=== PATIENT | female | born 1960 | race Caucasian/White ===

== ENCOUNTER 2018-01-21 18:22 | Inpatient (IN) | payer MEDICAID ==
[~2018-01-21] VITALS: Ht 114.3 cm; Wt 134.5 kg
[2018-01-21 19:19] LABS: BASOPHILS # (AUTO) 0.05 x10^3/uL (0-0.1); BASOPHILS % (AUTO) 1 % (0-1); EOSINOPHILS # (AUTO) 0.19 x10^3/uL (0-0.4); EOSINOPHILS % (AUTO) 2 % (1-7); LYMPHOCYTES % (AUTO) 20 % (22-44); MD NO; MEAN CORPUSCULAR HEMOGLOBIN 30.3 pg (27.0-34.8); MEAN CORPUSCULAR HGB CONC 33.5 g/dL (32.4-35.8); MEAN CORPUSCULAR VOLUME 90.4 fL (80-100); MEAN PLATELET VOLUME 10.1 fL (7.4-10.4); MONOCYTES # (AUTO) 0.39 x10^3/uL (0.2-0.8); MONOCYTES % (AUTO) 5 % (2-9); NEUTROPHILS # (AUTO) 5.95 x10^3/uL (1.8-6.8); NEUTROPHILS % (AUTO) 73 % (42-75); PLATELET COUNT 166 x10^3/uL (130-400); RED BLOOD COUNT 2.85 x10^6/uL (3.82-5.3); RED CELL DISTRIBUTION WIDTH 17.3 % (9.6-15.2)
[2018-01-21 19:28] LABS: ALBUMIN 2.8 g/dL (3.4-5.0); ANION GAP 12 mmol/L (5-15); CALCIUM 7.9 mg/dL (8.5-10.1); CHLORIDE 103 mmol/L (98-107)
[2018-01-21 19:31] LABS: INTERNATIONAL NORMALIZED RATIO 0.99 (0.93-1.1); PROTHROMBIN TIME 10.2 Seconds (9.6-11.5)
[2018-01-21 19:33] LABS: ALANINE AMINOTRANSFERASE 18 U/L (12-78); ALKALINE PHOSPHATASE 60 U/L (45-117); BILIRUBIN,TOTAL 0.5 mg/dL (0.2-1.0); CREATININE 1.75 mg/dL (0.55-1.02); TOTAL PROTEIN 6.5 g/dL (6.4-8.2)
[2018-01-21] MEDS ORDERED: SODIUM CHLORIDE FLUSH 10ML SYR IVF ONE ×2 (20:00)
[2018-01-21] MEDS ORDERED: SODIUM CHLORIDE 0.9% 1,000ML IVBOLUS ONE (20:00)
[2018-01-21] MEDS ORDERED: MEDROXYPROGESTERONE ACETATE 150 MG/ML IM ONE (20:30)
[2018-01-21 20:44] VITALS: BP 75/54
[2018-01-21 21:06] VITALS: BP 85/51
[2018-01-21] MEDS ORDERED: SODIUM CHLORIDE 0.9% 1,000 ML IV SCH (21:23)
[2018-01-21] MEDS ORDERED: LABETALOL 5MG/ML, 20ML IVPush PRN (21:30)
[2018-01-21] MEDS ORDERED: hydrALAzine 20 MG/ML, 1ML IVPush PRN (21:30)
[2018-01-21] MEDS ORDERED: ONDANSETRON 2MG/ML, 2ML IVPush PRN (21:30)
[2018-01-21] MEDS ORDERED: PROMETHAZINE 25 MG/ML, 1ML IM PRN (21:30)
[2018-01-21] MEDS ORDERED: BISACODYL 10 MG SUPP PR PRN (21:30)
[2018-01-21] MEDS ORDERED: POLYETHYLENE GLYCOL 17 GM PACKET PO PRN (21:30)
[2018-01-21] MEDS ORDERED: METF-649 PO (21:32)
[2018-01-21] MEDS ORDERED: LORA0.5T PO (21:32)
[2018-01-21] MEDS ORDERED: VENL150T PO (21:32)
[2018-01-21] MEDS ORDERED: MEDR10TA3 PO (21:32)
[2018-01-21] MEDS ORDERED: LORA5SOL PO (21:32)
[2018-01-21] MEDS ORDERED: POTASSIUM CHLORIDE (21:32)
[2018-01-21] MEDS ORDERED: LISI-167 PO (21:32)
[2018-01-21] MEDS ORDERED: GLIM4TAB2 PO (21:32)
[2018-01-21] MEDS ORDERED: ATOR40TA78 PO (21:32)
[2018-01-21] MEDS ORDERED: EMPA25TA PO (21:32)
[2018-01-21] MEDS ORDERED: FURO40TA6 PO (21:32)
[2018-01-21] MEDS ORDERED: CARV6.25 PO (21:32)
[2018-01-21 22:10] LABS: FREE T4 (FREE THYROXINE) 0.87 ng/dL (0.76-1.46); THYROID STIMULATING HORMONE 2.93 mIU/L (0.358-3.740)
[2018-01-21 22:14] VITALS: BP 100/68
[2018-01-21] MEDS ORDERED: LORazepam 0.5MG TABLET ONE (23:18)
[2018-01-21] MEDS: LORazepam 0.5MG TABLET PO SCH (23:20)
[2018-01-22] VITALS (10 sets, daily range): BP systolic 90–129; BP diastolic 54–70
[2018-01-22] MEDS: INSULIN LISPRO 100 UNITS/ML, PEN SQ-INSULIN SCH ×4 (00:27→21:44)
[2018-01-22] MEDS: ACETAMINOPHEN 325 MG TABLET PO PRN (02:26)
[2018-01-22 03:16] LABS: HEMOGLOBIN A1C 5.9 % (4.2-6.3)
[2018-01-22 04:02] LABS: BASOPHILS # (AUTO) 0.05 x10^3/uL (0-0.1); BASOPHILS % (AUTO) 1 % (0-1); EOSINOPHILS # (AUTO) 0.17 x10^3/uL (0-0.4); EOSINOPHILS % (AUTO) 3 % (1-7); LYMPHOCYTES % (AUTO) 22 % (22-44); MD NO; MEAN CORPUSCULAR HEMOGLOBIN 31.3 pg (27.0-34.8); MEAN CORPUSCULAR HGB CONC 34.5 g/dL (32.4-35.8); MEAN CORPUSCULAR VOLUME 90.9 fL (80-100); MEAN PLATELET VOLUME 9.8 fL (7.4-10.4); MONOCYTES # (AUTO) 0.47 x10^3/uL (0.2-0.8); MONOCYTES % (AUTO) 7 % (2-9); NEUTROPHILS # (AUTO) 4.67 x10^3/uL (1.8-6.8); NEUTROPHILS % (AUTO) 68 % (42-75); PLATELET COUNT 142 x10^3/uL (130-400); RED BLOOD COUNT 2.91 x10^6/uL (3.82-5.3)
[2018-01-22 04:14] LABS: ALANINE AMINOTRANSFERASE 16 U/L (12-78); ALBUMIN 2.4 g/dL (3.4-5.0); ANION GAP 11 mmol/L (5-15); CALCIUM 7.9 mg/dL (8.5-10.1); CHLORIDE 107 mmol/L (98-107); CREATININE 1.23 mg/dL (0.55-1.02)
[2018-01-22 04:17] LABS: ALKALINE PHOSPHATASE 51 U/L (45-117); BILIRUBIN,TOTAL 0.6 mg/dL (0.2-1.0); CHOL/HDL RATIO 3.2; CHOLESTEROL, TOTAL 106 mg/dL (140-239); HDL CHOL % 31 % (28-40); HDL CHOLESTEROL (DIRECT) 33 mg/dL (40-60); LDL CHOLESTEROL,CALCULATED 16 mg/dL (54-169); LDL/HDL RATIO 0.5 (0.5-3.0); TOTAL PROTEIN 5.8 g/dL (6.4-8.2); TRIGLYCERIDES 285 mg/dL (50-200); VLDL CHOLESTEROL 57 mg/dL (0-25)
[2018-01-22] MEDS: ASPIRIN 81 MG TABLET EC PO SCH (06:18)
[2018-01-22] MEDS ORDERED: MAGNESIUM SULFATE PMX 2GM/50ML 50 ML IV ONE (08:30)
[2018-01-22] MEDS ORDERED: CARVEDILOL 3.125 MG PO SCH (09:00)
[2018-01-22] MEDS: FUROSEMIDE 40 MG TABLET PO SCH (09:18)
[2018-01-22] MEDS ORDERED: MEDROXYPROGESTERONE ACETATE 2.5 MG TABLET ONE (09:26)
[2018-01-22] MEDS: MEDROXYPROGESTERONE ACETATE 5 MG TABLET PO SCH (09:34)
[2018-01-22] MEDS: LORATADINE 10 MG TABLET PO SCH (09:35)
[2018-01-22] MEDS: VENLAFAXINE 75 MG CAP ER PO SCH (09:35)
[2018-01-22] MEDS: CLOPIDOGREL 75 MG TABLET PO SCH ×2 (09:35→16:45)
[2018-01-22] MEDS: GLIMEPIRIDE 4 MG TABLET PO SCH (10:01)
[2018-01-22] MEDS: LORazepam 0.5MG TABLET PO SCH ×2 (17:22→21:43)
[2018-01-22] MEDS: DOCUSATE 100 MG CAPSULE PO PRN (17:22)
[2018-01-22 21:36] LABS: MICROSCOPIC INDICATED
[2018-01-22] MEDS: ATORVASTATIN 40 MG TABLET PO SCH (21:43)
[2018-01-22 21:58] LABS: CULTURE INDICATED? NO
[2018-01-23 01:55] VITALS: BP 109/73
[2018-01-23 02:36] LABS: BASOPHILS # (AUTO) 0.07 x10^3/uL (0-0.1); BASOPHILS % (AUTO) 1 % (0-1); EOSINOPHILS # (AUTO) 0.21 x10^3/uL (0-0.4); EOSINOPHILS % (AUTO) 3 % (1-7); LYMPHOCYTES # (AUTO) 1.76 x10^3/uL (1-3.4); LYMPHOCYTES % (AUTO) 23 % (22-44); MD NO; MEAN CORPUSCULAR HEMOGLOBIN 31.5 pg (27.0-34.8); MEAN CORPUSCULAR HGB CONC 34.1 g/dL (32.4-35.8); MEAN CORPUSCULAR VOLUME 92.4 fL (80-100); MEAN PLATELET VOLUME 9.8 fL (7.4-10.4); MONOCYTES # (AUTO) 0.49 x10^3/uL (0.2-0.8); MONOCYTES % (AUTO) 6 % (2-9); NEUTROPHILS # (AUTO) 5.22 x10^3/uL (1.8-6.8); NEUTROPHILS % (AUTO) 67 % (42-75); PLATELET COUNT 159 x10^3/uL (130-400); RED CELL DISTRIBUTION WIDTH 18.5 % (9.6-15.2)
[2018-01-23 02:45] LABS: ANION GAP 9 mmol/L (5-15); CALCIUM 8.5 mg/dL (8.5-10.1); CHLORIDE 104 mmol/L (98-107); CREATININE 1.12 mg/dL (0.55-1.02)
[2018-01-23 02:46] LABS: ALANINE AMINOTRANSFERASE 18 U/L (12-78); ALBUMIN 2.6 g/dL (3.4-5.0)
[2018-01-23 02:48] LABS: ALKALINE PHOSPHATASE 57 U/L (45-117); BILIRUBIN,TOTAL 0.4 mg/dL (0.2-1.0); TOTAL PROTEIN 6.3 g/dL (6.4-8.2)
[2018-01-23] MEDS: ASPIRIN 81 MG TABLET EC PO SCH (05:46)
[2018-01-23 08:01] VITALS: BP 143/78
[2018-01-23] MEDS: INSULIN LISPRO 100 UNITS/ML, PEN SQ-INSULIN SCH ×4 (09:24→21:29)
[2018-01-23 09:25] VITALS: BP 100/63
[2018-01-23] MEDS: FUROSEMIDE 40 MG TABLET PO SCH (09:27)
[2018-01-23] MEDS: GLIMEPIRIDE 4 MG TABLET PO SCH (09:28)
[2018-01-23] MEDS: VENLAFAXINE 75 MG CAP ER PO SCH (09:28)
[2018-01-23] MEDS: LORazepam 0.5MG TABLET PO SCH ×3 (09:29→21:29)
[2018-01-23] MEDS: MEDROXYPROGESTERONE ACETATE 5 MG TABLET PO SCH (09:29)
[2018-01-23] MEDS: CARVEDILOL 3.125 MG TABLET PO SCH (09:29)
[2018-01-23] MEDS: LORATADINE 10 MG TABLET PO SCH (09:30)
[2018-01-23] MEDS: TIROFIBAN-0.9% SODIUM CHLORIDE 100 ML IV SCH ×4 (10:18→22:38)
[2018-01-23 12:54] VITALS: BP 104/73
[2018-01-23 19:44] VITALS: BP 100/73
[2018-01-23] MEDS: ATORVASTATIN 40 MG TABLET PO SCH (21:29)
[2018-01-24] VITALS (8 sets, daily range): BP systolic 80–115; BP diastolic 45–77
[2018-01-24] MEDS: ONDANSETRON ODT 4 MG PO PRN ×4 (00:33→20:47)
[2018-01-24] MEDS: TIROFIBAN-0.9% SODIUM CHLORIDE 100 ML IV SCH ×5 (02:46→20:40)
[2018-01-24 04:56] LABS: ALBUMIN 2.4 g/dL (3.4-5.0); ANION GAP 8 mmol/L (5-15); CALCIUM 8.3 mg/dL (8.5-10.1); CHLORIDE 105 mmol/L (98-107)
[2018-01-24 04:57] LABS: MEAN CORPUSCULAR HEMOGLOBIN 31.4 pg (27.0-34.8); MEAN CORPUSCULAR HGB CONC 33.8 g/dL (32.4-35.8); MEAN CORPUSCULAR VOLUME 93.1 fL (80-100); MEAN PLATELET VOLUME 10.2 fL (7.4-10.4); PLATELET COUNT 152 x10^3/uL (130-400); RED BLOOD COUNT 2.24 x10^6/uL (3.82-5.3); RED CELL DISTRIBUTION WIDTH 19.3 % (9.6-15.2)
[2018-01-24 05:02] LABS: ALANINE AMINOTRANSFERASE 14 U/L (12-78); ALKALINE PHOSPHATASE 55 U/L (45-117); BILIRUBIN,TOTAL 0.4 mg/dL (0.2-1.0); CREATININE 1.23 mg/dL (0.55-1.02); TOTAL PROTEIN 5.7 g/dL (6.4-8.2)
[2018-01-24] MEDS: ASPIRIN 81 MG TABLET EC PO SCH (06:00)
[2018-01-24 07:02] LABS: BASOPHILS # (AUTO) 0.06 x10^3/uL (0-0.1); BASOPHILS % (AUTO) 1 % (0-1); EOSINOPHILS # (AUTO) 0.24 x10^3/uL (0-0.4); EOSINOPHILS % (AUTO) 3 % (1-7); LYMPHOCYTES # (AUTO) 2.17 x10^3/uL (1-3.4); LYMPHOCYTES % (AUTO) 25 % (22-44); MD MORPH REVIEW ONLY; MONOCYTES # (AUTO) 0.57 x10^3/uL (0.2-0.8); MONOCYTES % (AUTO) 6 % (2-9); NEUTROPHILS # (AUTO) 5.82 x10^3/uL (1.8-6.8); NEUTROPHILS % (AUTO) 66 % (42-75)
[2018-01-24 07:04] LABS: ANISOCYTOSIS 2+; MICROCYTOSIS 1+; POLYCHROMASIA 1+; TOXIC GRAN 1+
[2018-01-24 07:06] LABS: <PLATELET ESTIMATE> ADEQUATE; <PLT MORPHOLOGY> NORMAL PLT MORPH; SPHEROCYTES 1+
[2018-01-24] MEDS: INSULIN LISPRO 100 UNITS/ML, PEN SQ-INSULIN SCH ×4 (07:53→20:30)
[2018-01-24] MEDS: CARVEDILOL 3.125 MG TABLET PO SCH (07:53)
[2018-01-24] MEDS: FUROSEMIDE 40 MG TABLET PO SCH (07:54)
[2018-01-24] MEDS: GLIMEPIRIDE 4 MG TABLET PO SCH (08:24)
[2018-01-24] MEDS: VENLAFAXINE 75 MG CAP ER PO SCH (08:24)
[2018-01-24] MEDS: MEDROXYPROGESTERONE ACETATE 5 MG TABLET PO SCH (08:24)
[2018-01-24] MEDS: LORazepam 0.5MG TABLET PO SCH ×3 (08:24→20:27)
[2018-01-24] MEDS: LORATADINE 10 MG TABLET PO SCH (08:30)
[2018-01-24] MEDS: ATORVASTATIN 40 MG TABLET PO SCH (20:27)
[2018-01-24] MEDS: INSULIN GLARGINE 100 UNITS/ML, PEN SQ-INSULIN SCH (20:40)
[2018-01-25] VITALS (12 sets, daily range): BP systolic 77–141; BP diastolic 47–88
[2018-01-25] MEDS: TIROFIBAN-0.9% SODIUM CHLORIDE 100 ML IV SCH ×4 (01:15→20:10)
[2018-01-25] MEDS ORDERED: METOPROLOL TARTRATE 25 MG TABLET PO ONE (04:00)
[2018-01-25 05:20] LABS: ANION GAP 12 mmol/L (5-15); CHLORIDE 101 mmol/L (98-107); CREATININE 1.54 mg/dL (0.55-1.02)
[2018-01-25] MEDS ORDERED: DIGOXIN 0.25 MG/ML, 2ML IVPush ONE (06:00)
[2018-01-25] MEDS: ASPIRIN 81 MG TABLET EC PO SCH (06:00)
[2018-01-25] MEDS: INSULIN LISPRO 100 UNITS/ML, PEN SQ-INSULIN SCH ×4 (08:10→20:19)
[2018-01-25] MEDS: CARVEDILOL 3.125 MG TABLET PO SCH (08:12)
[2018-01-25] MEDS: FUROSEMIDE 40 MG TABLET PO SCH (08:12)
[2018-01-25] MEDS: LORazepam 0.5MG TABLET PO SCH ×3 (09:00→20:10)
[2018-01-25] MEDS: ONDANSETRON ODT 4 MG PO PRN (10:33)
[2018-01-25] MEDS: VENLAFAXINE 75 MG CAP ER PO SCH (10:34)
[2018-01-25] MEDS: LORATADINE 10 MG TABLET PO SCH (10:34)
[2018-01-25] MEDS: MEDROXYPROGESTERONE ACETATE 5 MG TABLET PO SCH (10:34)
[2018-01-25] MEDS: GLIMEPIRIDE 4 MG TABLET PO SCH (10:35)
[2018-01-25] MEDS ORDERED: SODIUM CHLORIDE 0.9% 1,000ML IVBOLUS ONE (12:00)
[2018-01-25] MEDS: ATORVASTATIN 40 MG TABLET PO SCH (20:10)
[2018-01-25] MEDS: INSULIN GLARGINE 100 UNITS/ML, PEN SQ-INSULIN SCH (20:18)
[2018-01-26 02:26] VITALS: BP 125/72
[2018-01-26] MEDS: ACETAMINOPHEN 325 MG TABLET PO PRN ×3 (03:16→14:18)
[2018-01-26] MEDS: TIROFIBAN-0.9% SODIUM CHLORIDE 100 ML IV SCH ×3 (04:21→22:58)
[2018-01-26 05:22] LABS: MEAN CORPUSCULAR HEMOGLOBIN 31.4 pg (27.0-34.8); MEAN CORPUSCULAR HGB CONC 34.1 g/dL (32.4-35.8); MEAN CORPUSCULAR VOLUME 92.1 fL (80-100); MEAN PLATELET VOLUME 10.2 fL (7.4-10.4); PLATELET COUNT 161 x10^3/uL (130-400); RED BLOOD COUNT 2.72 x10^6/uL (3.82-5.3); RED CELL DISTRIBUTION WIDTH 17.9 % (9.6-15.2)
[2018-01-26 05:27] LABS: ALANINE AMINOTRANSFERASE 44 U/L (12-78); ALBUMIN 2.4 g/dL (3.4-5.0); ANION GAP 10 mmol/L (5-15); CHLORIDE 103 mmol/L (98-107); CREATININE 1.21 mg/dL (0.55-1.02)
[2018-01-26 05:29] LABS: ALKALINE PHOSPHATASE 63 U/L (45-117); BILIRUBIN,TOTAL 0.5 mg/dL (0.2-1.0); TOTAL PROTEIN 5.9 g/dL (6.4-8.2)
[2018-01-26 05:44] LABS: BASOPHILS # (AUTO) 0.05 x10^3/uL (0-0.1); BASOPHILS % (AUTO) 1 % (0-1); EOSINOPHILS # (AUTO) 0.21 x10^3/uL (0-0.4); EOSINOPHILS % (AUTO) 2 % (1-7); LYMPHOCYTES # (AUTO) 1.43 x10^3/uL (1-3.4); LYMPHOCYTES % (AUTO) 14 % (22-44); MD SCAN; MONOCYTES # (AUTO) 0.57 x10^3/uL (0.2-0.8); MONOCYTES % (AUTO) 6 % (2-9); NEUTROPHILS # (AUTO) 7.88 x10^3/uL (1.8-6.8); NEUTROPHILS % (AUTO) 78 % (42-75)
[2018-01-26] MEDS: ASPIRIN 81 MG TABLET EC PO SCH (05:54)
[2018-01-26 07:44] VITALS: BP 123/68
[2018-01-26] MEDS: LORazepam 0.5MG TABLET PO SCH ×3 (09:00→20:52)
[2018-01-26] MEDS: INSULIN LISPRO 100 UNITS/ML, PEN SQ-INSULIN SCH ×4 (09:04→20:57)
[2018-01-26] MEDS: FUROSEMIDE 40 MG TABLET PO SCH (09:05)
[2018-01-26] MEDS: CARVEDILOL 3.125 MG TABLET PO SCH (09:05)
[2018-01-26] MEDS: VENLAFAXINE 75 MG CAP ER PO SCH (09:05)
[2018-01-26] MEDS: MEDROXYPROGESTERONE ACETATE 5 MG TABLET PO SCH (09:05)
[2018-01-26] MEDS: GLIMEPIRIDE 4 MG TABLET PO SCH (09:06)
[2018-01-26] MEDS: LORATADINE 10 MG TABLET PO SCH (09:06)
[2018-01-26] MEDS: ONDANSETRON ODT 4 MG PO PRN (12:06)
[2018-01-26 13:08] VITALS: BP 105/59
[2018-01-26 19:09] VITALS: BP 123/71
[2018-01-26] MEDS: ATORVASTATIN 40 MG TABLET PO SCH (20:52)
[2018-01-26] MEDS: INSULIN GLARGINE 100 UNITS/ML, PEN SQ-INSULIN SCH (20:58)
[2018-01-27 03:33] VITALS: BP 101/67
[2018-01-27] MEDS: ACETAMINOPHEN 325 MG TABLET PO PRN ×2 (04:04→15:10)
[2018-01-27] MEDS: ASPIRIN 81 MG TABLET EC PO SCH (05:41)
[2018-01-27 05:57] LABS: BASOPHILS # (AUTO) 0.06 x10^3/uL (0-0.1); BASOPHILS % (AUTO) 1 % (0-1); EOSINOPHILS % (AUTO) 2 % (1-7); LYMPHOCYTES # (AUTO) 1.73 x10^3/uL (1-3.4); LYMPHOCYTES % (AUTO) 20 % (22-44); MD NO; MEAN CORPUSCULAR HEMOGLOBIN 31.1 pg (27.0-34.8); MEAN CORPUSCULAR HGB CONC 33.3 g/dL (32.4-35.8); MEAN CORPUSCULAR VOLUME 93.5 fL (80-100); MEAN PLATELET VOLUME 10.4 fL (7.4-10.4); MONOCYTES % (AUTO) 7 % (2-9); NEUTROPHILS # (AUTO) 5.94 x10^3/uL (1.8-6.8); NEUTROPHILS % (AUTO) 70 % (42-75); PLATELET COUNT 179 x10^3/uL (130-400); RED BLOOD COUNT 2.79 x10^6/uL (3.82-5.3)
[2018-01-27 06:15] LABS: ALANINE AMINOTRANSFERASE 51 U/L (12-78); ALBUMIN 2.5 g/dL (3.4-5.0); ALKALINE PHOSPHATASE 110 U/L (45-117); BILIRUBIN,TOTAL 0.4 mg/dL (0.2-1.0); CALCIUM 8.1 mg/dL (8.5-10.1); CREATININE 1.27 mg/dL (0.55-1.02); TOTAL PROTEIN 6.4 g/dL (6.4-8.2)
[2018-01-27 06:18] LABS: ANION GAP 9 mmol/L (5-15); CHLORIDE 102 mmol/L (98-107)
[2018-01-27] MEDS: INSULIN LISPRO 100 UNITS/ML, PEN SQ-INSULIN SCH ×4 (07:00→20:34)
[2018-01-27 08:01] VITALS: BP 126/84
[2018-01-27] MEDS: TIROFIBAN-0.9% SODIUM CHLORIDE 100 ML IV SCH (08:09)
[2018-01-27] MEDS: INSULIN GLARGINE 100 UNITS/ML, PEN SQ-INSULIN SCH ×2 (08:11→20:33)
[2018-01-27] MEDS: MEDROXYPROGESTERONE ACETATE 5 MG TABLET PO SCH (08:12)
[2018-01-27] MEDS: LORazepam 0.5MG TABLET PO SCH ×3 (08:12→20:35)
[2018-01-27] MEDS: GLIMEPIRIDE 4 MG TABLET PO SCH (08:12)
[2018-01-27] MEDS: FUROSEMIDE 40 MG TABLET PO SCH (08:12)
[2018-01-27] MEDS: CARVEDILOL 3.125 MG TABLET PO SCH (08:12)
[2018-01-27] MEDS: VENLAFAXINE 75 MG CAP ER PO SCH (08:12)
[2018-01-27] MEDS: LORATADINE 10 MG TABLET PO SCH (08:13)
[2018-01-27] MEDS ORDERED: AMIODARONE 900 MG in DEXTROSE 5% 482 ML IV PRN (13:00)
[2018-01-27] MEDS ORDERED: AMIODARONE 50 MG/ML, 3ML IVPush ONE (13:00)
[2018-01-27 13:06] VITALS: BP 109/75
[2018-01-27] MEDS ORDERED: FILTER 0.22 MICRON FOR AMIODARONE IV PRN (13:30)
[2018-01-27] MEDS ORDERED: AMIODARONE 150 MG in DEXTROSE 5% 100 ML IV ONE (13:30)
[2018-01-27] MEDS ORDERED: BUPIVACAINE/PF-EPI 0.5% 1:200K ONE ×2 (15:22→15:50)
[2018-01-27] MEDS ORDERED: SILVER NITRATE STICK TP ONE (15:22)
[2018-01-27] MEDS ORDERED: FENTANYL PF 100 MCG/2ML ONE (15:57)
[2018-01-27] MEDS ORDERED: DEXAMETHASONE 4 MG/ML, 1ML ONE ×2 (15:58→16:13)
[2018-01-27] MEDS ORDERED: ONDANSETRON 2MG/ML, 2ML ONE (16:13)
[2018-01-27] MEDS ORDERED: PROPOFOL 10 MG/ML, 20ML ONE (16:13)
[2018-01-27] MEDS ORDERED: SUGAMMADEX 200 MG/2 ML IVPush ONE (16:19)
[2018-01-27] MEDS ORDERED: OXYcodone 5 MG/5 ML ORAL.SOL UDC PO PRN (17:00)
[2018-01-27] MEDS ORDERED: MIDAZOLAM 1 MG/ML, 2ML IV PRN (17:00)
[2018-01-27] MEDS ORDERED: FENTANYL PF 100 MCG/2ML IV PRN (17:00)
[2018-01-27] MEDS ORDERED: MEPERIDINE/PF 25MG/0.5ML IVPush PRN (17:00)
[2018-01-27] MEDS ORDERED: ALBUTEROL SULFATE 2.5 MG/3 ML NPPB PRN (17:00)
[2018-01-27] MEDS ORDERED: HYDROmorphone 1 MG/ML, 1ML IV PRN (17:00)
[2018-01-27] MEDS ORDERED: PROMETHAZINE 25 MG/ML, 1ML IV PRN (17:00)
[2018-01-27] MEDS ORDERED: EPHEDRINE 50 MG/ML, 1ML IVPush PRN (17:00)
[2018-01-27] MEDS ORDERED: ONDANSETRON ODT 8 MG PO PRN (17:00)
[2018-01-27] MEDS ORDERED: ONDANSETRON 2MG/ML, 2ML IV PRN (17:00)
[2018-01-27] MEDS ORDERED: MORPHINE SULFATE 4 MG/ML, 1ML IVPush PRN (17:00)
[2018-01-27] MEDS ORDERED: LABETALOL 5MG/ML, 20ML IV PRN (17:00)
[2018-01-27] MEDS ORDERED: hydrALAzine 20 MG/ML, 1ML IV PRN (17:00)
[2018-01-27] MEDS ORDERED: PROMETHAZINE 12.5 MG SUPP PR PRN (17:00)
[2018-01-27] MEDS ORDERED: HALOPERIDOL 5 MG/ML IV PRN (17:00)
[2018-01-27] MEDS ORDERED: LORazepam 2 MG/ML, 1ML IVPush PRN (17:00)
[2018-01-27] MEDS ORDERED: INSULIN SINGLE DOSE, ER SQ-INSULIN ONE (17:38)
[2018-01-27] MEDS ORDERED: INSULIN REGULAR 100 UNITS/ML, 3ML VIAL SQ-INSULIN ONE (18:00)
[2018-01-27] MEDS ORDERED: OXYcodone 5 MG/5 ML ORAL.SOL UDC ONE (18:07)
[2018-01-27 18:45] VITALS: BP 107/66
[2018-01-27] MEDS: ATORVASTATIN 40 MG TABLET PO SCH (20:34)
[2018-01-28 00:51] VITALS: BP 102/61
[2018-01-28] MEDS: ACETAMINOPHEN 325 MG TABLET PO PRN ×2 (03:20→21:52)
[2018-01-28 05:44] LABS: CHLORIDE 99 mmol/L (98-107)
[2018-01-28 05:47] LABS: MEAN CORPUSCULAR HEMOGLOBIN 31.5 pg (27.0-34.8); MEAN CORPUSCULAR HGB CONC 33.7 g/dL (32.4-35.8); MEAN CORPUSCULAR VOLUME 93.6 fL (80-100); RED BLOOD COUNT 2.72 x10^6/uL (3.82-5.3); RED CELL DISTRIBUTION WIDTH 20.1 % (9.6-15.2)
[2018-01-28 05:52] LABS: ALANINE AMINOTRANSFERASE 143 U/L (12-78); ALBUMIN 2.5 g/dL (3.4-5.0); ALKALINE PHOSPHATASE 167 U/L (45-117); ANION GAP 10 mmol/L (5-15); BILIRUBIN,TOTAL 0.6 mg/dL (0.2-1.0); CALCIUM 7.7 mg/dL (8.5-10.1); CREATININE 1.77 mg/dL (0.55-1.02); TOTAL PROTEIN 6.2 g/dL (6.4-8.2)
[2018-01-28 06:12] LABS: BASOPHILS # (AUTO) 0.05 x10^3/uL (0-0.1); BASOPHILS % (AUTO) 1 % (0-1); EOSINOPHILS # (AUTO) 0.01 x10^3/uL (0-0.4); EOSINOPHILS % (AUTO) 0 % (1-7); LYMPHOCYTES # (AUTO) 0.83 x10^3/uL (1-3.4); LYMPHOCYTES % (AUTO) 9 % (22-44); MD SCAN; MEAN PLATELET VOLUME 10.7 fL (7.4-10.4); MONOCYTES # (AUTO) 0.37 x10^3/uL (0.2-0.8); MONOCYTES % (AUTO) 4 % (2-9); NEUTROPHILS # (AUTO) 8.21 x10^3/uL (1.8-6.8); NEUTROPHILS % (AUTO) 87 % (42-75); PLATELET COUNT 183 x10^3/uL (130-400)
[2018-01-28 07:28] VITALS: BP 112/75
[2018-01-28] MEDS: INSULIN LISPRO 100 UNITS/ML, PEN SQ-INSULIN SCH ×4 (08:43→20:48)
[2018-01-28] MEDS: INSULIN GLARGINE 100 UNITS/ML, PEN SQ-INSULIN SCH (08:44)
[2018-01-28] MEDS: LORATADINE 10 MG TABLET PO SCH (09:00)
[2018-01-28] MEDS: ASPIRIN 81 MG TABLET EC PO SCH (09:00)
[2018-01-28] MEDS: LORazepam 0.5MG TABLET PO SCH ×3 (09:19→20:47)
[2018-01-28] MEDS: MEDROXYPROGESTERONE ACETATE 5 MG TABLET PO SCH (09:20)
[2018-01-28] MEDS: CARVEDILOL 3.125 MG TABLET PO SCH (09:20)
[2018-01-28] MEDS: FUROSEMIDE 40 MG TABLET PO SCH (09:21)
[2018-01-28] MEDS: GLIMEPIRIDE 4 MG TABLET PO SCH (09:21)
[2018-01-28] MEDS: VENLAFAXINE 75 MG CAP ER PO SCH (09:22)
[2018-01-28] MEDS: CLOPIDOGREL 75 MG TABLET PO SCH (09:22)
[2018-01-28] MEDS: DOCUSATE 100 MG CAPSULE PO PRN (09:22)
[2018-01-28 13:50] VITALS: BP 108/68
[2018-01-28 19:15] VITALS: BP 100/61
[2018-01-28] MEDS: ATORVASTATIN 40 MG TABLET PO SCH (20:47)
[2018-01-28] MEDS ORDERED: INSULIN GLARGINE 100 UNITS/ML, PEN SQ-INSULIN SCH (21:00)
[2018-01-29 03:00] VITALS: BP 100/60
[2018-01-29 05:46] LABS: BASOPHILS # (AUTO) 0.08 x10^3/uL (0-0.1); BASOPHILS % (AUTO) 1 % (0-1); EOSINOPHILS # (AUTO) 0.15 x10^3/uL (0-0.4); EOSINOPHILS % (AUTO) 2 % (1-7); LYMPHOCYTES # (AUTO) 2.17 x10^3/uL (1-3.4); LYMPHOCYTES % (AUTO) 28 % (22-44); MD NO; MEAN CORPUSCULAR HGB CONC 32.7 g/dL (32.4-35.8); MEAN CORPUSCULAR VOLUME 94.9 fL (80-100); MEAN PLATELET VOLUME 10.2 fL (7.4-10.4); MONOCYTES # (AUTO) 0.65 x10^3/uL (0.2-0.8); MONOCYTES % (AUTO) 8 % (2-9); NEUTROPHILS # (AUTO) 4.76 x10^3/uL (1.8-6.8); NEUTROPHILS % (AUTO) 61 % (42-75); PLATELET COUNT 183 x10^3/uL (130-400); RED BLOOD COUNT 2.62 x10^6/uL (3.82-5.3); RED CELL DISTRIBUTION WIDTH 19.7 % (9.6-15.2)
[2018-01-29 05:51] LABS: ALBUMIN 2.4 g/dL (3.4-5.0); ANION GAP 9 mmol/L (5-15); CALCIUM 8.2 mg/dL (8.5-10.1); CHLORIDE 104 mmol/L (98-107)
[2018-01-29 05:56] LABS: ALANINE AMINOTRANSFERASE 115 U/L (12-78); ALKALINE PHOSPHATASE 153 U/L (45-117); BILIRUBIN,TOTAL 0.3 mg/dL (0.2-1.0); CREATININE 1.39 mg/dL (0.55-1.02); TOTAL PROTEIN 5.9 g/dL (6.4-8.2)
[2018-01-29] MEDS: ASPIRIN 81 MG TABLET EC PO SCH (06:00)
[2018-01-29] MEDS: INSULIN LISPRO 100 UNITS/ML, PEN SQ-INSULIN SCH ×3 (07:00→16:38)
[2018-01-29 08:09] VITALS: BP 105/73
[2018-01-29] MEDS: LORATADINE 10 MG TABLET PO SCH (08:34)
[2018-01-29] MEDS: LORazepam 0.5MG TABLET PO SCH ×2 (08:34→15:32)
[2018-01-29] MEDS: FUROSEMIDE 40 MG TABLET PO SCH (08:35)
[2018-01-29] MEDS: CARVEDILOL 3.125 MG TABLET PO SCH (08:35)
[2018-01-29] MEDS: CLOPIDOGREL 75 MG TABLET PO SCH (08:37)
[2018-01-29] MEDS: GLIMEPIRIDE 4 MG TABLET PO SCH (08:37)
[2018-01-29] MEDS: MEDROXYPROGESTERONE ACETATE 5 MG TABLET PO SCH (08:37)
[2018-01-29] MEDS: VENLAFAXINE 75 MG CAP ER PO SCH (08:38)
[2018-01-29] MEDS ORDERED: MEDROXYPROGESTERONE ACETATE 2.5 MG TABLET ONE (08:44)
[2018-01-29] MEDS ORDERED: INSULIN GLARGINE 100 UNITS/ML, PEN SQ-INSULIN SCH (09:00)
[2018-01-29 13:10] VITALS: BP 129/96
[2018-01-29] MEDS ORDERED: POLY17PO5 PO (14:17)
[2018-01-29] MEDS ORDERED: CLOP75TA PO (14:17)
[2018-01-29] MEDS ORDERED: INSU100I13 SQ-INSULIN (14:17)
[2018-01-29] MEDS ORDERED: LISI5TAB7 PO (14:17)
[2018-01-29] MEDS ORDERED: ONDA4TAB13 PO (14:17)
[2018-01-29] MEDS ORDERED: ASPI-621 PO (14:17)
== END 2018-01-29 17:38 | disposition home or self-care (01) | DRG 744 ==
LOC: ED 20:30 → EDIP 20:32 → ED 21:02 → 5SO 22:02
PROVIDERS: ADMIT Internal Medicine; ATTEND Internal Medicine
PROC: 30233N1 Transfusion of Nonautologous Red Blood Cells into Peripheral Vein, Percutaneous Approach (ICD-10-PCS; 2018-01-21)
PROC: 0UBC8ZX Excision of Cervix, Via Natural or Artificial Opening Endoscopic, Diagnostic (ICD-10-PCS; 2018-01-27)
PROC: 0UDB8ZX Extraction of Endometrium, Via Natural or Artificial Opening Endoscopic, Diagnostic (ICD-10-PCS; principal; 2018-01-27 15:45)
DX: N95.0 Postmenopausal bleeding (principal); E43 Unspecified severe protein-calorie malnutrition; I21.4 Non-ST elevation (NSTEMI) myocardial infarction; N17.0 Acute kidney failure with tubular necrosis; D62 Acute posthemorrhagic anemia; D68.59 Other primary thrombophilia; Z68.45 Body mass index [BMI] 70 or greater, adult; E87.2 Acidosis; I13.0 Hypertensive heart and chronic kidney disease with heart failure and stage 1 through stage 4 chronic kidney disease, or unspecified chronic kidney disease; E11.22 Type 2 diabetes mellitus with diabetic chronic kidney disease; E11.51 Type 2 diabetes mellitus with diabetic peripheral angiopathy without gangrene; E66.01 Morbid (severe) obesity due to excess calories; E78.5 Hyperlipidemia, unspecified; E83.42 Hypomagnesemia; E87.5 Hyperkalemia; G47.33 Obstructive sleep apnea (adult) (pediatric); I25.10 Atherosclerotic heart disease of native coronary artery without angina pectoris; I25.5 Ischemic cardiomyopathy; I34.0 Nonrheumatic mitral (valve) insufficiency; I48.2 Chronic atrial fibrillation; I50.9 Heart failure, unspecified; J44.9 Chronic obstructive pulmonary disease, unspecified; K59.00 Constipation, unspecified; N18.3 Chronic kidney disease, stage 3 (moderate); N83.9 Noninflammatory disorder of ovary, fallopian tube and broad ligament, unspecified; N93.8 Other specified abnormal uterine and vaginal bleeding; Z79.01 Long term (current) use of anticoagulants; Z79.02 Long term (current) use of antithrombotics/antiplatelets; Z79.4 Long term (current) use of insulin; Z79.82 Long term (current) use of aspirin; Z82.49 Family history of ischemic heart disease and other diseases of the circulatory system; Z85.41 Personal history of malignant neoplasm of cervix uteri; Z86.73 Personal history of transient ischemic attack (TIA), and cerebral infarction without residual deficits; Z89.611 Acquired absence of right leg above knee; Z87.891 Personal history of nicotine dependence; Z89.612 Acquired absence of left leg above knee; Z90.710 Acquired absence of both cervix and uterus; Z95.1 Presence of aortocoronary bypass graft; Z95.5 Presence of coronary angioplasty implant and graft
CPT/HCPCS: 36415; 36430; 71045; 80048; 80053; 80061; 81001; 82378; 82962; 83036; 83735; 83880; 84100; 84439; 84443; 84484; 85014; 85018; 85025; 85610; 85730; 86304; 86850; 86900; 86923; 88305; 93005; 93306; 96360; 96372; 99291; G0378; J1100; J2405; J2704; J3010; Q0162; J0282; J1050; J1160; J1815; J3475; J7030; J7060; P9016

== ENCOUNTER 2018-09-25 07:28 | Outpatient (CLI) | payer MEDICAID ==
[~2018-09-25 07:28] MED LIST: ASPI81TA45 PO; ATOR40TA78 PO; CARV6.25 PO; CLOP75TA PO; EMPA25TA PO; FURO40TA6 PO; GLIM4TAB2 PO; INSU100I13 SQ-INSULIN; LISI-167 PO; LISI5TAB7 PO; LORA0.5T PO; LORA5SOL PO; MEDR10TA3 PO; METF-649 PO; ONDA4TAB13 PO; POLY17PO5 PO; POTASSIUM CHLORIDE; VENL150T PO
[2018-09-25] MEDS ORDERED: OMNIPAQUE 350 MG/ML, 100ML BOTTLE ONE (15:14)
== END 2018-09-25 23:59 | disposition home or self-care (01) ==
LOC: CFH 07:28
PROVIDERS: ATTEND Specialist
DX: K76.0 Fatty (change of) liver, not elsewhere classified (principal); I70.0 Atherosclerosis of aorta; I25.10 Atherosclerotic heart disease of native coronary artery without angina pectoris; I51.7 Cardiomegaly; J90 Pleural effusion, not elsewhere classified; C54.1 Malignant neoplasm of endometrium; R91.8 Other nonspecific abnormal finding of lung field
CPT/HCPCS: 71260; 74177; 82565; Q9967

== ENCOUNTER 2018-09-30 07:39 | Outpatient (CLI) | payer MEDICAID | END 2018-09-30 23:59 | disposition home or self-care (01) | LOC: ROC 07:39 | PROVIDERS: ATTEND Radiology Radiation Oncology | DX: N85.02 Endometrial intraepithelial neoplasia [EIN] (principal); Z79.899 Other long term (current) drug therapy | CPT/HCPCS: 99214; G0463 ==